=== PATIENT | female | born 1995 | race Caucasian/White ===

== ENCOUNTER 2025-09-30 05:20 | Inpatient (IN) | payer BC, OTHER, SELFPAY ==
--- NOTE | 2025-09-26 07:05 | ESHP_ITS ---
RE: NEFTALI KAUR : 1995 DATE OF ADMISSION: 09/30/2025 HISTORY OF PRESENT ILLNESS: This is a 29-year-old 2, para 1 with due date of 10/14 with intrauterine at 38 weeks on 10/02 who presents for repeat delivery. Her is complicated by borderline chronic hypertension. She does not take any medications. She reports occasional contractions. She denies any leaking or bleeding. She reports normal movement. ALLERGIES: NO KNOWN DRUG ALLERGIES. MEDICATIONS: multivitamin 1 p.o. daily. PAST MEDICAL HISTORY: Borderline chronic hypertension, iron deficiency anemia, diastasis recti. FAMILY HISTORY: Mother has hypertension. Cousin has congenital heart disease. OB HISTORY: 2022 40 weeks delivery 7 pound 10 ounce female, no complications. PAST SURGICAL HISTORY: delivery 2022. REVIEW OF SYSTEMS: She denies any headache, change of vision, right upper quadrant pain. She denies any chest pain, palpitations, cough, fever, shortness of breath, flank pain, or lower extremity pain. PHYSICAL EXAMINATION: VITAL SIGNS: Blood pressure 133/73, heart rate 88, respirations 18, temperature is 98.2. HEENT: Oropharynx and sclerae clear. LUNGS: Clear to auscultation bilaterally HEART: Regular rate and rhythm. ABDOMEN: Old Pfannenstiel scar noted. EXTREMITIES: Nontender. SKIN: No gross rashes or lesions. NEUROLOGIC: No focal deficit. ASSESSMENT AND PLAN: Intrauterine at 38 weeks on 09/30, previous delivery, elects repeat delivery, borderline chronic hypertension. PLAN: Repeat delivery. Informed consent was obtained. Patient was made aware of the risk, complication, alternatives, and benefits of the proposed procedure and she agrees. DT: 06::23 TT: 07:04:00 Ref: [id number] - TID: [id number] MTDD
[2025-09-29 12:00] LABS: Basophils # (Auto) 0.0 Thou/mm3 (0.0-0.2); Basophils % (Auto) 0 % (0-2.5); Eosinophils # (Auto) 0.1 Thou/mm3 (0.0-0.5); Eosinophils % (Auto) 1 % (0-10); Hematocrit 33.7 % (36.0-46.0); Hemoglobin 11.3 g/dL (12.0-16.0); Immature Granulocytes Auto 0.03 Thou/mm3 (0.00-0.00); Lymphocytes # (Auto) 2.6 Thou/mm3 (1.0-4.8); Lymphocytes % (Auto) 30 % (10-50); Mean Corpuscular HGB Conc 33.5 g/dl (31.0-37.0); Mean Corpuscular Hemoglobin 28.6 pg (25.0-35.0); Mean Corpuscular Volume 85 fL (80-100); Monocytes # (Auto) 0.5 Thou/mm3 (0.0-0.8); Monocytes % (Auto) 6 % (0-12); Neutrophils # (Auto) 5.6 Thou/mm3 (1.8-7.7); Neutrophils % (Auto) 63 % (37-80); Nucleated Red Blood Cell # 0.00 Thou/mm3 (0.00-0.00); Nucleated Red Blood Cell % 0 /100 WBC (0); Platelet Count 211 Thou/mm3 (140-440); RDW Standard Deviation 42.7 fL (36.4-46.3); Red Blood Count 3.95 Miln/mm3 (4.00-5.20); White Blood Count 8.8 Thou/mm3 (3.6-11.0)
[2025-09-29 12:21] LABS: INR 0.9 (0.9-1.3); Partial Thromboplastin Time 25.8 Seconds (22.0-36.0); Prothrombin Time 10.0 Seconds (9.0-12.2)
[2025-09-29 12:34] LABS: Syphilis Nonreactive (Nonreactive)
[2025-09-29 12:38] LABS: Alanine Aminotransferase 8 U/L (10-49); Albumin, Serum 3.8 gm/dL (3.5-5.0); Albumin/Globulin Ratio 1.3 (1.2-2.2); Alkaline Phosphatase 156 U/L (46-116); Anion Gap 8 (7-16); Aspartate Amino Transferase 16 U/L (0-34); BUN/Creatinine Ratio 11 Ratio (12-20); Bilirubin,Total 0.7 mg/dL (0.3-1.2); Blood Urea Nitrogen 8 mg/dL (9-23); Calcium 8.9 mg/dL (8.3-10.6); Calcium (Corrected) 9.1 mg/dL (8.5-10.1); Carbon Dioxide 24.9 mMol/L (20.0-31.0); Chloride 107 mMol/L (98-107); Creatinine (Component) 0.7 mg/dL (0.6-1.3); Globulin 2.9 gm/dL (2.3-3.5); Glucose 75 mg/dL (74-106); Osmolality,Calculated 276 (275-295); Potassium 4.2 mMol/L (3.4-5.1); Sodium 140 mMol/L (136-145); Total Protein 6.7 gm/dL (5.7-8.2); eGFR > 60 See Note
[2025-09-30] VITALS (14 sets, daily range): BP systolic 91–138; BP diastolic 50–87; PULSE 59–96; RESP 12–20; TEMP 36.5–37.1; O2SAT 96–100; BMI 34.9
[2025-09-30] MEDS: RINGERS LACTATED 1000 ML 1,000 ML 100 ML IV ×2 (05:50→21:12)
[2025-09-30] MEDS: FAMOTIDINE INJ 10 MG/ML VIAL 2 ML 20 MG IV (07:18)
[2025-09-30] MEDS: CITRIC ACID/SODIUM CITR 15 ML UDC (BICITRA) 30 ML PO (07:18)
[2025-09-30] MEDS: ceFAZolin/D5W 2 GM IV 2 GM/100 ML BAG IV (07:18)
--- NOTE | 2025-09-30 07:31 | PD.ADDHP ---
Addendum History & Physical Addendum Date of report being addended: 09/30/25 Narrative: Patient reexamined. No change in H&P.
--- NOTE | 2025-09-30 07:38 | ESOP_ITS ---
Operative Note - STITCH BONDING MACHINE DRAWER IN Procedure Date of procedure: 09/30/25 Procedure Performed: Repeat low-transverse section via Pfannenstiel skin incision Bilateral salpingectomy Indication: Intrauterine at 38 weeks and 1 day Borderline chronic hypertension Previous delivery Elects repeat delivery Multiparity desires voluntary sterilization Pre-Op diagnosis: Intrauterine at 38 weeks and 1 day Borderline chronic hypertension Previous delivery Elects repeat delivery Multiparity desires voluntary sterilization Post-Op diagnosis: Intrauterine at 38 weeks and 1 day Borderline chronic hypertension Previous delivery Elects repeat delivery Multiparity desires voluntary sterilization Endometriosis Stage 1 Anesthesia type: Spinal Procedure description: After proper informed consent was obtained and the patient was made aware of the risks, complications, alternatives and benefits of the proposed procedure she was taken to the operating room where she underwent induction of spinal anesthesia. She was prepped and draped in the usual sterile fashion. A timeout was performed.? A Pfannenstiel skin incision was made with the scalpel and carried through to the underlying layer of fascia with the Bovie. The fascia was nicked in the midline incision and the incision was extended bilaterally with the Bovie. The inferior aspect of the fascial incision was grasped with Avery clamps elevated and the underlying rectus muscle dissected off with the Bovie. The superior aspect the fascial incision was grasped with Avery clamps elevated and the underlying rectus muscle dissected off with the Bovie. The rectus muscles were in the midline. The peritoneum was grasped between 2 Sal[place]on clamps and entered sharply with the Metzenbaum scissors. The peritoneum was extended superiorly and inferiorly with good visualization of the bladder. The vesicouterine peritoneum was incised transversely and the bladder flap created digitally. A Shell blade was inserted. A low transverse incision was made in the uterus with a scapel and the incision was extended digitally. The 's head delivered and the mouth and nose were suctioned with the bulb suction. The shoulder and body delivered atraumatically. The cord was clamped after 30 second delayed cord clamping and the cord was cut.? The was handed off to the waiting Pediatric staff, cord blood was collected for lab testing. The placenta was removed complete and intact. The uterus was initially atonic but responded to uterotonics. The uterus was exteriorized and cleared of all clots and debris. The uterine incision was closed with #1-0 chromic catgut suture in a running interlocking fashion. A second layer of the same suture was used to imbricate the first layer and obtain excellent hemostasis. The vesicouterine peritoneum was closed with 2-0 chromic catgut suture in a running fashion. Attention was turned to the right fallopian tube which was grasped at the fimbriated end with a Homero clamp and using the Enseal X-1 large jaw a right salpingectomy was performed. Hemostasis achieved. Attention was turned to the left fallopian tube which was grasped at the fimbriated end with a [place] clamp and using the Enseal X-1 large jaw a left salpingectomy was performed. Hemostasis achieved. The firm uterus was returned to the abdomen. The gutters were cleared of all clots and debris. The adnexae were revisualized along with the lower uterine segment and all was hemostatic. The peritoneum was closed with 0 chromic catgut suture in running fashion. The rectus muscle was closed with 0 chromic catgut suture. The fascia was closed with 0 Vicryl beginning at each angle and ending in the center in a running fashion. The subcutaneous tissue was irrigated with warmed normal saline solution and found to be hemostatic. The subcutaneous tissue was closed with 2-0 chromic catgut suture in a running fashion. The skin was closed with 4-0 Monocryl. A Dermabond Prineo dressing was applied and a sterile pressure dressing was applied.? She tolerated the procedure well. Counts were correct. I discussed with the patient the nature of her condition, intraoperative findings and expectation for recovery all questions answered. Specimen: left tube and right tube Findings: Live Apgars Weight Amniotic fluid clear Cephalic Placenta removed complete and intact Uterus initially atonic. Serosal surface of the uterus and ovaries contained superficial endometriotic implants. 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
--- NOTE | 2025-09-30 07:38 | ESDS_ITS ---
DS: Providers Provider Date of admission: 09/30/25 05:20 Primary care physician: Hemalatha Calix MD Admitting Provider: Jass Murillo MD Attending Provider on Admission: Jass Murillo MD Attending Provider on DC: Jass Murillo MD Discharging Provider: Jass Murillo MD DS: Diagnosis Problem List Completed Was Problem List Reviewed/Reconciled?: Yes Summary/Hosp Course Peripartum Data Procedures: Procedures Operation Date: 09/30/25 07:45 <No data on this case meets the specified criteria> Time Spent with Patient Time attestation: Total time spent providing and/or coordinating discharge services: Exam Vital Signs Pulse BP 96 128/87 H 09/30/25 05:48 09/30/25 05:48 Discharge Plan Plan Patient Disposition: HOME (Self Care) Patient condition on transfer: Stable Prescriptions/Referrals Prescriptions/Med Rec: New ibuprofen 600 mg tablet 600 mg PO Q6H PRN (Reason: pain) Qty: 30 0RF Continued vit-iron fum-folic ac [ Vitamin with Minerals] 28 mg iron- 800 mcg Tablet 1 tab PO QDAY Referrals: Hemalatha Calix MD [Primary Care Provider, Family Practice] Patient/Caregiver Discharge Instructions Discharge Activity: activity as tolerated Other Discharge Activity Instructions:: Follow up office 2 weeks. Education Materials: C Section Dc Print Language: Indonesian Stand Alone Forms: Rosanne Award Info., Patient Portal Info Letter Planned Discharge Date 10/02/25
--- NOTE | 2025-09-30 09:10 | OBDSUM_ITS ---
Data ([place]igua) Data Hx Section: Yes : 2 Delivery Data ([place]antigua) Labor Data ROM date: 09/30/25 ROM time: 08:07 Amniotic membrane rupture type: Artificial Amniotic fluid description: Clear Delivery Data EDC: 10/13/25 EDC calculated by:: LMP/early US confirmation [facility] delivery date: 09/30/25 [facility] delivery time: 08:08 Gestational age (weeks): 38 Gestational age (days): 1 Placenta delivery date: 09/30/25 Placenta delivery time: 08:08 Delivered by: Jass Murillo Delivery nurse: ANALI Thacker Neworn nurse: ANALI Cross Spinning Lathe Operator Automatic at delivery: No Support person(s) at delivery: FOB Delivery Method Delivery method: Low Transverse Presentation: Vertex position: OP Anesthesia Type Anesthesia Type: Spinal Anesthesia type: Spinal Placenta Placenta delivery description: Manual Removal Cord blood sent to lab: Yes cord blood collection: Cord Blood Type EBL Estimated blood loss (ml): 800 Additional Procedures Bilateral salpingectomy Complications Complications: Uterine atony [facility] Data ([place]igua) Data order: 1 's gender: Female Identification band number: [id number] weight (gms): 6 lb 10.527 oz Weight (pounds): 6 lbs and 10.5 ozs length: 20.25 in 1 minute: 9 5 minutes: 9
--- NOTE | 2025-09-30 09:15 | PC.NURSE ---
0824: orders received from Dr. Murillo to administer 800mcg cytotec MI prior to leaving OB OR after surgical procedure
[2025-09-30] MEDS: OXYTOCIN in NS 20 units 20 UNIT/1,000 ML BAG 125 UNIT IV (10:37)
[2025-09-30] MEDS: ONDANSETRON INJ 2 MG/ML INJ 2 ML 4 MG IVP (12:06)
[2025-09-30 12:48] LABS: Amphetamine/Metham Scrn,Ur OB Negative (Negative); Benzoylecgonine Screen, Ur OB Negative (Negative); Opiate Screen,Urine OB Negative (Negative); THC Screen,Urine OB Negative (Negative)
[2025-09-30 13:00] LABS: Basophils # (Auto) 0.0 Thou/mm3 (0.0-0.2); Basophils % (Auto) 0 % (0-2.5); Eosinophils # (Auto) 0.0 Thou/mm3 (0.0-0.5); Eosinophils % (Auto) 0 % (0-10); Hematocrit 35.0 % (36.0-46.0); Hemoglobin 11.8 g/dL (12.0-16.0); Immature Granulocytes Auto 0.07 Thou/mm3 (0.00-0.00); Lymphocytes # (Auto) 1.3 Thou/mm3 (1.0-4.8); Lymphocytes % (Auto) 7 % (10-50); Mean Corpuscular HGB Conc 33.7 g/dl (31.0-37.0); Mean Corpuscular Hemoglobin 28.8 pg (25.0-35.0); Mean Corpuscular Volume 85 fL (80-100); Monocytes # (Auto) 0.3 Thou/mm3 (0.0-0.8); Monocytes % (Auto) 1 % (0-12); Neutrophils # (Auto) 16.3 Thou/mm3 (1.8-7.7); Neutrophils % (Auto) 91 % (37-80); Nucleated Red Blood Cell # 0.00 Thou/mm3 (0.00-0.00); Nucleated Red Blood Cell % 0 /100 WBC (0); Platelet Count 193 Thou/mm3 (140-440); RDW Standard Deviation 42.2 fL (36.4-46.3); Red Blood Count 4.10 Miln/mm3 (4.00-5.20); White Blood Count 18.0 Thou/mm3 (3.6-11.0)
[2025-10-01 00:09] VITALS: BP 101/64; PULSE 75; RESP 14; TEMP 37.1; O2SAT 96
[2025-10-01] MEDS: SIMETHICONE 80 MG CHEW PO ×2 (00:30→11:23)
[2025-10-01] MEDS: IBUPROFEN TAB 400 MG TABLET 800 MG PO ×3 (00:31→23:46)
[2025-10-01 03:35] VITALS: BP 109/69; PULSE 73; RESP 14; TEMP 36.6; O2SAT 96
[2025-10-01] MEDS: ACETAMINOPHEN 325 MG TABLET 650 MG PO ×2 (04:02→11:23)
--- NOTE | 2025-10-01 06:56 | ESPR_ITS ---
RE: NEFTALI KAUR : 1995 DATE OF SERVICE: 10/01/2025 SUBJECTIVE: Post-op day #1. Patient denies any problem or complaints. She is voiding. She is ambulating. She is tolerating her diet. She is passing flatus. She denies any excessive vaginal bleeding. She denies any dizziness or lightheadedness. She denies any chest pain, palpitations, shortness of breath or lower extremity pain. OBJECTIVE: VITAL SIGNS: Blood pressure 109/69, heart rate 73, respirations 14, temperature is 97.8, pulse ox is 96 % on room air. LUNGS: Clear to auscultation bilaterally. HEART: Regular rate and rhythm. ABDOMEN: Non-distended. Dressing dry and intact. Fundus is firm. EXTREMITIES: Non-tender. LABORATORY DATA: Hemoglobin pre-delivery is 11.3, post-delivery is 11.8. ASSESSMENT: Post-op day # 1 status post delivery with bilateral salpingectomy. PLAN: Remove dressing. Discontinue IV. Encourage ambulation. support. Possible discharge home tomorrow. DT: 06:17:24 TT: 06:56:00 Ref: [id number] - TID: [id number]
[2025-10-01 07:45] VITALS: BP 113/69; PULSE 68; RESP 18; TEMP 36.6; O2SAT 97
[2025-10-01] MEDS: DOCUSATE SOD 100 MG CAPSULE PO (08:18)
[2025-10-01] MEDS: ENOXAPARIN SOD INJ 40 MG/0.4 ML SYRINGE SC (08:18)
--- NOTE | 2025-10-01 09:28 | PC.SS ---
SALES DEVELOPMENT EXECUTIVE conducted bedside contact with the patient to address nursing referral indicating patient possesses history of past THC use.? Toxicology screening at admission negative.? SALES DEVELOPMENT EXECUTIVE introduced self and role.? Present with patient was JERMAINE, Vladislav Smith.? Patient gave consent for FOB to be present during discussion.? SALES DEVELOPMENT EXECUTIVE discussed basis of referral.? Patient confirmed recreational use of THC during college.? Patient denied use of THC since.? , Pineda; is the patient?s second child.? was delivered via .? Patient plans of .? OB services provided by Dr. Murillo.? Patient confirms consistency with OB appointments.? Patient is gainfully employed.? Patient is not receiving WIC, SNAP or TANF.? Patient denies history of alcohol/drug abuse.? Patient denies CWS intervention.? Patient denies episodes of domestic violence.? Patient has access to appropriate supplies and equipment; to include a car seat.? FOB will provide transportation upon discharge.? Patient describes possessing support system consisting of FOB and parents.? No further intervention required at this time, social worker aide will be available to address any further concerns.? SALES DEVELOPMENT EXECUTIVE updated bedside nurse.?
[2025-10-01 11:30] VITALS: BP 142/77; PULSE 79; RESP 18; TEMP 36.6; O2SAT 99
[2025-10-01 19:35] VITALS: BP 126/74; PULSE 88; RESP 12; TEMP 36.4; O2SAT 97
[2025-10-02 03:21] VITALS: BP 114/73; PULSE 71; RESP 14; TEMP 36.7; O2SAT 98
--- NOTE | 2025-10-02 06:36 | ESPR_ITS ---
RE: NEFTALI KAUR : 1995 DATE OF SERVICE: 10/02/2025 SUBJECTIVE: Postoperative day number 2. Patient denies any problem or complaints. She is voiding and ambulating and tolerating a regular diet and passing flatus. She denies any excessive vaginal bleeding. She denies any chest pain, palpitations, shortness of breath, or lower extremity pain. OBJECTIVE: VITAL SIGNS: Blood pressure is 114/73, heart rate 71, respirations 14, temperature is 98.0, and pulse oximetry is 98% on room air. LUNGS: Clear to auscultation bilaterally. HEART: Regular rate and rhythm. ABDOMEN: Incision clear and intact. Fundus is firm. EXTREMITIES: Nontender. ASSESSMENT: Postoperative day number 2 status post delivery and bilateral salpingectomy. PLAN: Discharge home, discharge instructions given, and follow up in the office in 2 weeks. DT: 05:50:54 TT: 06:35:00 Ref: [id number] - TID: [id number]
[2025-10-02 08:35] VITALS: BP 112/71; PULSE 78; RESP 16; TEMP 36.7; O2SAT 98
[2025-10-02] MEDS: DOCUSATE SOD 100 MG CAPSULE PO (08:47)
[2025-10-02] MEDS: ENOXAPARIN SOD INJ 40 MG/0.4 ML SYRINGE SC (08:47)
[2025-10-02] MEDS: IBUPROFEN TAB 400 MG TABLET 800 MG PO (10:22)
== END 2025-10-02 11:40 | disposition home or self-care (01) | DRG 785 ==
LOC: S4SX 07:35 → S4NX 07:56
PROVIDERS: Admitting Provider Specialist; PCP Family Medicine; Visit Provider Specialist
PROC: 0UL70ZZ Occlusion of Bilateral Fallopian Tubes, Open Approach (ICD-10-PCS; CPT 59514; principal; 2025-09-30 07:30)
DX: O34.211 Maternal care for low transverse scar from previous cesarean delivery (principal); Z37.0 Single live birth; Z30.2 Encounter for sterilization; Z3A.38 38 weeks gestation of pregnancy; O62.2 Other uterine inertia; N80.9 Endometriosis, unspecified
CPT/HCPCS: 36415; 59409; 80053; 80307; 85025; 85610; 85730; 86780; 86850; 86900; 86901; 94762; A4217; A4649; J0689; J1650; J2210; J2250; J2274; J2371; J2405; J2590; J3490; J7120; S0191; A9270; J2270